=== PATIENT | female | born 1995 | race Caucasian/White ===

== ENCOUNTER 2019-08-18 23:25 | Emergency (ER) | payer OTHER ==
[~2019-08-18] VITALS: Ht 154.9 cm; Wt 83.0 kg
[~2019-08-18 23:25] MED LIST: BANZEL PO; CALCIUM 600-D 61 TA1 PO; D3 VITAMIN400 IU/ML PO; LEVOCARNITINE PO; MP MAGNESIUM100 MG PO; OMEGA-3 FISH OIL PO; PEN250 PO; PROTECT IRON1 TAB PO; TOPOMAX PO; TRI-SPRINTEC; VIMPAT PO; [UNRECOGNIZED DRUG - CODE] PO
[2019-08-19 01:57] VITALS: BP 108/69
== END 2019-08-19 01:57 | disposition home or self-care (01) ==
LOC: ED 23:25
DX: S09.8XXA Other specified injuries of head, initial encounter (principal); R56.9 Unspecified convulsions; Z90.89 Acquired absence of other organs; Z88.1 Allergy status to other antibiotic agents; Z88.8 Allergy status to other drugs, medicaments and biological substances; X58.XXXA Exposure to other specified factors, initial encounter; Y93.89 Activity, other specified; Y92.89 Other specified places as the place of occurrence of the external cause; Y99.8 Other external cause status

== ENCOUNTER 2021-01-26 10:12 | Emergency (ER) | payer OTHER ==
[~2021-01-26] VITALS: Ht 154.9 cm; Wt 89.8 kg
[2021-01-26 10:13] VITALS: Ht 154.9 cm; Wt 89.8 kg
[2021-01-26 10:38] LABS: BASOPHIL % 1.1 % (0.2-1.3); PLATELET COUNT 281 x10^3mcL (179-408); RED CELL DISTRIBUTION WIDTH 12.8 % (12.3-17.7)
[2021-01-26 11:28] LABS: CARBON DIOXIDE 20.7 mmol/L (21-32); CHLORIDE SERUM 108 mmol/L (98-107); GFR1 > 60 mL/min; GLUCOSE SERUM 104 mg/dL (74-106); POTASSIUM SERUM 4.4 mmol/L (3.5-5.1); SODIUM SERUM 142 mmol/L (136-145)
[2021-01-26 11:33] LABS: ALKALINE PHOSPHATASE 50 U/L (46-116); ALT/SGPT 25 U/L (14-59); AST/SGOT 25 U/L (15-37); BILIRUBIN TOTAL 0.5 mg/dL (0.20-1.00); TOTAL PROTEIN, SERUM 7.8 g/dL (6.4-8.2)
[2021-01-26] MEDS ORDERED: OMEPRAZOLE40 M1 PO (13:20)
[2021-01-26 13:35] VITALS: BP 103/70
== END 2021-01-26 13:35 | disposition home or self-care (01) ==
LOC: ED 10:12
PROVIDERS: Emergency Medicine
DX: R10.11 Right upper quadrant pain (principal); Z88.1 Allergy status to other antibiotic agents; Z88.8 Allergy status to other drugs, medicaments and biological substances; Z90.89 Acquired absence of other organs
CPT/HCPCS: J2270; J2405